=== PATIENT | female | born 1955 | race Caucasian/White ===

== ENCOUNTER 2022-03-17 12:09 | Emergency (ER) | payer MEDICAID, MEDICARE ==
[~2022-03-17] VITALS: Ht 170.2 cm; Wt 132.0 kg
[2022-03-17 12:34] VITALS: BP 156/80
[2022-03-17 13:21] LABS: Basophils # (auto) 0.1 10 ^3/uL (0-0.2); Basophils % (auto) 1.1 % (0.0-2.0); Eosinophils # (auto) 0.3 10 ^3/uL (0-0.8); Eosinophils % (auto) 3.5 % (0.0-7.0); Hematocrit 44.9 % (36.0-46.0); Hemoglobin 14.8 g/dL (12.2-16.2); Lymphocytes # (auto) 2.4 10 ^3/uL (0.4-5.4); Lymphocytes % (auto) 28.9 % (10.0-50.0); Mean Corpuscular Volume 87.9 fL (80.0-100.0); Monocytes # (auto) 0.5 10 ^3/uL (0-1.3); Monocytes % (auto) 6.4 % (0.0-12.0); Neutrophils # (auto) 4.9 10 ^3/uL (1.6-8.6); Neutrophils % (auto) 60.1 % (37.0-80.0); Nucleated Red Blood Cells % 0.1 %; Red Blood Cells 5.11 10^6/uL (4.0-5.20); Red Cell Distribution Width 14.4 % (11.8-14.3); White Blood Cell 8.2 10^3/uL (4.4-10.8)
[2022-03-17 13:38] LABS: Albumin 3.4 g/dL (3.4-5.0); BUN/Creatinine Ratio 18.5; Calcium 9.7 mg/dL (8.5-10.1); Potassium 4.6 mmol/L (3.5-5.1)
[2022-03-17 13:40] LABS: Bilirubin, Total 0.4 mg/dL (0.2-1.0)
== END 2022-03-17 16:08 | disposition left against medical advice (07) ==
LOC: ER 12:09
DX: R19.00 Intra-abdominal and pelvic swelling, mass and lump, unspecified site (principal); R22.43 Localized swelling, mass and lump, lower limb, bilateral; R22.33 Localized swelling, mass and lump, upper limb, bilateral; I50.9 Heart failure, unspecified; Z90.49 Acquired absence of other specified parts of digestive tract; Z90.89 Acquired absence of other organs
CPT/HCPCS: 36415; 80053; 85025